=== PATIENT | female | born 1985 | race Caucasian/White ===

== ENCOUNTER 2024-12-20 00:08 | Emergency (ER) | payer MEDICARE, OTHER ==
[~2024-12-20] VITALS: Ht 154.9 cm; Wt 55.0 kg
[2024-12-20] MEDS ORDERED: Ondansetron HCl 2 MG / ML 2ML Vial IV PRN (01:05)
[2024-12-20 01:35] LABS: BASOPHILS ABSOLUTE AUTO 0.06 K/mm3 (0.00-0.23); BASOPHILS PERCENT AUTO 1 % (0-2); EOSINOPHILS ABSOLUTE AUTO 0.18 K/mm3 (0.00-0.68); EOSINOPHILS PERCENT AUTO 1 % (0-6); Hematocrit 34.9 % (33.0-51.0); Hemoglobin 11.6 g/dL (11.5-16.0); IMMATURE GRAN ABSOLUTE AUTO 0.03 K/mm3 (0.00-0.10); IMMATURE GRAN PERCENT AUTO 0 % (0-1); LYMPHOCYTES ABSOLUTE AUTO 1.10 K/mm3 (0.84-5.20); LYMPHOCYTES PERCENT AUTO 9 % (21-46); MONOCYTES ABSOLUTE AUTO 0.78 K/mm3 (0.16-1.47); MONOCYTES PERCENT AUTO 6 % (4-13); Mean Corpuscular HGB Conc 33.2 g/dL (31.5-36.5); Mean Corpuscular Volume 91 fL (80-100); NEUTROPHILS ABSOLUTE AUTO 10.74 K/mm3 (1.96-9.15); NEUTROPHILS PERCENT AUTO 83 % (41-73); NRBC ABSOLUTE 0.00 K/mm3 (0.00-0.02); NRBC Auto 0.0 /100 WBC (0.0-0.2); Platelet Count 346 K/mm3 (150-400); RDW Coefficient Variation 13.0 % (11.7-14.2); RDW Standard Deviation 43.6 fL (35.1-46.3)
[2024-12-20 01:54] LABS: Alanine Aminotransfer (ALT/SGP 12.0 U/L (12-78); Albumin, Blood 3.2 g/dL (3.4-5.0); Albumin/Globulin Ratio 0.8 (0.8-1.8); Anion Gap 12.0 mmol/L (3-11); Aspartate Aminotrans (AST/SGOT 14.0 U/L (12-37); Bilirubin, Total 0.4 mg/dL (0.1-1.0); Blood Urea Nitrogen 52.0 mg/dL (8-24); CO2, Blood 28.0 mmol/L (21-32); Calcium, Blood 9.2 mg/dL (8.5-10.1); Chloride, Blood 95.0 mmol/L (98-108); Creatinine, Blood 5.56 mg/dL (0.40-1.00); Globulin, Blood 4.2 g/dL (2.2-4.0); Glucose, Blood 136.0 mg/dL (70-99); Potassium, Blood 4.0 mmol/L (3.5-5.5); Sodium, Blood 131.0 mmol/L (136-145); Total Protein, Blood 7.4 g/dL (6.4-8.2)
[2024-12-26] MEDS ORDERED: ONDA4ODT MM (15:34)
[2024-12-28] MEDS ORDERED: LISI20 PO (01:16)
[2024-12-28] MEDS ORDERED: SPIRONOLACTONE1 EACH PO (01:17)
[2024-12-29] MEDS ORDERED: HUMALOG KW100 UNIT/1 SC (15:08)
[2024-12-29] MEDS ORDERED: MIDO5 PO (15:09)
== END 2024-12-20 02:47 | disposition home or self-care (01) ==
LOC: ER 00:08
PROVIDERS: Student in an Organized Health Care Education/Training Program
DX: R07.2 Precordial pain (principal); M54.50 Low back pain, unspecified; E11.22 Type 2 diabetes mellitus with diabetic chronic kidney disease; N18.6 End stage renal disease; Z99.2 Dependence on renal dialysis
CPT/HCPCS: 71046; 80053; 83690; 84484; 85025; 93005; 93010; 99284-25; A9270; J2405

== ENCOUNTER 2024-12-21 16:15 | Emergency (ER) | payer MEDICARE, OTHER ==
[~2024-12-21] VITALS: Ht 154.9 cm; Wt 55.0 kg
[2024-12-21] MEDS ORDERED: Etomidate 2MG / ML 10ML Vial IV ONE (16:55)
[2024-12-21] MEDS ORDERED: FentaNYL Citrate 50 MCG/ML 2 ML Injection IV ONE (16:55)
[2024-12-21 17:13] LABS: BASOPHILS ABSOLUTE AUTO 0.05 K/mm3 (0.00-0.23); BASOPHILS PERCENT AUTO 1 % (0-2); EOSINOPHILS ABSOLUTE AUTO 0.20 K/mm3 (0.00-0.68); EOSINOPHILS PERCENT AUTO 3 % (0-6); Hematocrit 40.7 % (33.0-51.0); Hemoglobin 13.8 g/dL (11.5-16.0); IMMATURE GRAN ABSOLUTE AUTO 0.03 K/mm3 (0.00-0.10); IMMATURE GRAN PERCENT AUTO 0 % (0-1); LYMPHOCYTES ABSOLUTE AUTO 1.52 K/mm3 (0.84-5.20); LYMPHOCYTES PERCENT AUTO 19 % (21-46); MONOCYTES ABSOLUTE AUTO 0.55 K/mm3 (0.16-1.47); MONOCYTES PERCENT AUTO 7 % (4-13); Mean Corpuscular HGB Conc 33.9 g/dL (31.5-36.5); Mean Corpuscular Volume 90 fL (80-100); NEUTROPHILS ABSOLUTE AUTO 5.57 K/mm3 (1.96-9.15); NEUTROPHILS PERCENT AUTO 70 % (41-73); NRBC ABSOLUTE 0.00 K/mm3 (0.00-0.02); NRBC Auto 0.0 /100 WBC (0.0-0.2); RDW Coefficient Variation 13.0 % (11.7-14.2); RDW Standard Deviation 43.2 fL (35.1-46.3)
[2024-12-21 17:26] LABS: Alanine Aminotransfer (ALT/SGP 11.0 U/L (12-78); Albumin, Blood 3.8 g/dL (3.4-5.0); Albumin/Globulin Ratio 0.9 (0.8-1.8); Anion Gap 14.0 mmol/L (3-11); Aspartate Aminotrans (AST/SGOT 11.0 U/L (12-37); Bilirubin, Total 0.6 mg/dL (0.1-1.0); Blood Urea Nitrogen 50.0 mg/dL (8-24); CO2, Blood 28.0 mmol/L (21-32); Calcium, Blood 9.8 mg/dL (8.5-10.1); Chloride, Blood 89.0 mmol/L (98-108); Creatinine, Blood 5.99 mg/dL (0.40-1.00); Globulin, Blood 4.3 g/dL (2.2-4.0); Glucose, Blood 186.0 mg/dL (70-99); Potassium, Blood 3.9 mmol/L (3.5-5.5); Sodium, Blood 127.0 mmol/L (136-145); Total Protein, Blood 8.1 g/dL (6.4-8.2)
[2024-12-21 17:30] LABS: Platelet Count 404 K/mm3 (150-400)
[2024-12-21] MEDS ORDERED: NS 500 ML IV SCH (17:35)
== END 2024-12-21 18:58 | disposition home or self-care (01) ==
LOC: ER 16:15
PROVIDERS: Student in an Organized Health Care Education/Training Program
DX: I48.91 Unspecified atrial fibrillation (principal); E11.22 Type 2 diabetes mellitus with diabetic chronic kidney disease; N18.6 End stage renal disease; Z99.2 Dependence on renal dialysis
CPT/HCPCS: 80053; 84484; 85025; J3010; J7030

== ENCOUNTER 2024-12-26 01:06 | Emergency (ER) | payer MEDICARE, OTHER ==
[~2024-12-26] VITALS: Ht 154.9 cm; Wt 59.0 kg
[2024-12-26 02:08] LABS: BASOPHILS ABSOLUTE AUTO 0.06 K/mm3 (0.00-0.23); BASOPHILS PERCENT AUTO 1 % (0-2); EOSINOPHILS ABSOLUTE AUTO 0.22 K/mm3 (0.00-0.68); EOSINOPHILS PERCENT AUTO 2 % (0-6); Hematocrit 32.5 % (33.0-51.0); Hemoglobin 10.8 g/dL (11.5-16.0); IMMATURE GRAN ABSOLUTE AUTO 0.04 K/mm3 (0.00-0.10); IMMATURE GRAN PERCENT AUTO 0 % (0-1); LYMPHOCYTES ABSOLUTE AUTO 1.20 K/mm3 (0.84-5.20); LYMPHOCYTES PERCENT AUTO 9 % (21-46); MONOCYTES ABSOLUTE AUTO 1.03 K/mm3 (0.16-1.47); MONOCYTES PERCENT AUTO 8 % (4-13); Mean Corpuscular HGB Conc 33.2 g/dL (31.5-36.5); Mean Corpuscular Volume 93 fL (80-100); NEUTROPHILS ABSOLUTE AUTO 10.52 K/mm3 (1.96-9.15); NEUTROPHILS PERCENT AUTO 80 % (41-73); NRBC ABSOLUTE 0.00 K/mm3 (0.00-0.02); NRBC Auto 0.0 /100 WBC (0.0-0.2); Platelet Count 453 K/mm3 (150-400); RDW Coefficient Variation 13.1 % (11.7-14.2); RDW Standard Deviation 44.5 fL (35.1-46.3)
[2024-12-26 02:12] LABS: Alanine Aminotransfer (ALT/SGP 12.0 U/L (12-78); Albumin, Blood 3.1 g/dL (3.4-5.0); Albumin/Globulin Ratio 0.8 (0.8-1.8); Anion Gap 12.0 mmol/L (3-11); Aspartate Aminotrans (AST/SGOT 8.0 U/L (12-37); Bilirubin, Total 0.2 mg/dL (0.1-1.0); Blood Urea Nitrogen 59.0 mg/dL (8-24); CO2, Blood 26.0 mmol/L (21-32); Calcium, Blood 9.6 mg/dL (8.5-10.1); Chloride, Blood 99.0 mmol/L (98-108); Creatinine, Blood 4.67 mg/dL (0.40-1.00); Globulin, Blood 4.1 g/dL (2.2-4.0); Glucose, Blood 113.0 mg/dL (70-99); Potassium, Blood 3.5 mmol/L (3.5-5.5); Sodium, Blood 133.0 mmol/L (136-145); Total Protein, Blood 7.2 g/dL (6.4-8.2)
[2024-12-26] MEDS ORDERED: Miralax17 GM PO (02:37)
[2024-12-26] MEDS ORDERED: Peg/Electrolytes 4,000 ML BTL PO ONE (02:40)
[2024-12-26] MEDS ORDERED: ONDA4ODT MM ×3 (15:34→15:36)
[2024-12-26] MEDS ORDERED: TRAM50 PO ×3 (15:34→15:36)
[2024-12-28] MEDS ORDERED: LISI20 PO (01:16)
[2024-12-28] MEDS ORDERED: SPIRONOLACTONE1 EACH PO (01:17)
[2024-12-29] MEDS ORDERED: HUMALOG KW100 UNIT/1 SC (15:08)
[2024-12-29] MEDS ORDERED: MIDO5 PO (15:09)
== END 2024-12-26 02:47 | disposition home or self-care (01) ==
LOC: ER 01:06
PROVIDERS: Emergency Medicine
DX: K59.00 Constipation, unspecified (principal); E11.22 Type 2 diabetes mellitus with diabetic chronic kidney disease; N18.9 Chronic kidney disease, unspecified; Z88.8 Allergy status to other drugs, medicaments and biological substances
CPT/HCPCS: 71250; 74176; 80053; 83690; 84484; 85025; 93005; 93010; 99284-25; A9270

== ENCOUNTER 2024-12-26 08:44 | Emergency (ER) | payer MEDICARE, OTHER ==
[~2024-12-26] VITALS: Ht 154.9 cm; Wt 59.0 kg
[~2024-12-26 08:44] MED LIST: Miralax17 GM PO
[2024-12-26] MEDS ORDERED: Colchicine 0.6 MG TAB PO ONE (13:15)
[2024-12-26 14:02] LABS: Source, Urine Clean Catch
[2024-12-26 14:11] LABS: Bilirubin, Urine Neg (Neg); Glucose Qualitative, Urine 2+ (Neg); Ketones, Urine Neg (Neg); Leukocyte Esterase, Urine Neg (Neg); Protein, Urine 3+ (Neg); Specific Gravity, Urine 1.010 (1.003-1.022); Urobilinogen, Urine NORM (Normal)
[2024-12-26 14:21] LABS: Color, Urine Pale Yellow (P-Yellow)
[2024-12-26 14:25] LABS: Red Blood Cells, Urine 0-2 /hpf (0-2)
[2024-12-26] MEDS ORDERED: TRAM50 PO ×2 (15:34→15:36)
[2024-12-26] MEDS ORDERED: ONDA4ODT MM ×2 (15:34→15:36)
[2024-12-28] MEDS ORDERED: LISI20 PO (01:16)
[2024-12-28] MEDS ORDERED: SPIRONOLACTONE1 EACH PO (01:17)
[2024-12-29] MEDS ORDERED: HUMALOG KW100 UNIT/1 SC (15:08)
[2024-12-29] MEDS ORDERED: MIDO5 PO (15:09)
== END 2024-12-26 15:45 | disposition home or self-care (01) ==
LOC: ER 08:44
PROVIDERS: Student in an Organized Health Care Education/Training Program
DX: N18.6 End stage renal disease (principal); I32 Pericarditis in diseases classified elsewhere; Z99.2 Dependence on renal dialysis; E11.22 Type 2 diabetes mellitus with diabetic chronic kidney disease; Z79.899 Other long term (current) drug therapy; Z88.8 Allergy status to other drugs, medicaments and biological substances; K59.00 Constipation, unspecified; N18.9 Chronic kidney disease, unspecified
CPT/HCPCS: 71250; 74176; 76770; 80053; 81001; 83690; 84484; 85025; 86140; 93005; 93010; 99284-25; 99285-25; A9270

== ENCOUNTER 2024-12-27 19:10 | Inpatient (IN) | payer MEDICARE, OTHER ==
[~2024-12-27] VITALS: Ht 154.9 cm; Wt 57.4 kg
[~2024-12-27 19:10] MED LIST changes: +Heparin Sodium,Porcine 5,000 UNIT/0.5 ML SDV SC SCH; +ONDA4ODT MM; +TRAM50 PO
[2024-12-27 20:34] LABS: BASOPHILS ABSOLUTE AUTO 0.05 K/mm3 (0.00-0.23); BASOPHILS PERCENT AUTO 1 % (0-2); EOSINOPHILS ABSOLUTE AUTO 0.21 K/mm3 (0.00-0.68); EOSINOPHILS PERCENT AUTO 3 % (0-6); Hematocrit 31.0 % (33.0-51.0); Hemoglobin 10.4 g/dL (11.5-16.0); IMMATURE GRAN ABSOLUTE AUTO 0.02 K/mm3 (0.00-0.10); IMMATURE GRAN PERCENT AUTO 0 % (0-1); LYMPHOCYTES ABSOLUTE AUTO 1.08 K/mm3 (0.84-5.20); LYMPHOCYTES PERCENT AUTO 15 % (21-46); MONOCYTES ABSOLUTE AUTO 0.59 K/mm3 (0.16-1.47); MONOCYTES PERCENT AUTO 8 % (4-13); Mean Corpuscular HGB Conc 33.5 g/dL (31.5-36.5); Mean Corpuscular Volume 91 fL (80-100); NEUTROPHILS ABSOLUTE AUTO 5.06 K/mm3 (1.96-9.15); NEUTROPHILS PERCENT AUTO 72 % (41-73); NRBC ABSOLUTE 0.00 K/mm3 (0.00-0.02); NRBC Auto 0.0 /100 WBC (0.0-0.2); RDW Coefficient Variation 13.2 % (11.7-14.2); RDW Standard Deviation 43.8 fL (35.1-46.3)
[2024-12-27 20:38] LABS: Platelet Count 392 K/mm3 (150-400)
[2024-12-27 20:41] LABS: Alanine Aminotransfer (ALT/SGP 12.0 U/L (12-78); Albumin, Blood 3.3 g/dL (3.4-5.0); Albumin/Globulin Ratio 0.8 (0.8-1.8); Anion Gap 15.0 mmol/L (3-11); Aspartate Aminotrans (AST/SGOT 12.0 U/L (12-37); Bilirubin, Total 0.2 mg/dL (0.1-1.0); Blood Urea Nitrogen 62.0 mg/dL (8-24); CO2, Blood 26.0 mmol/L (21-32); Calcium, Blood 9.4 mg/dL (8.5-10.1); Chloride, Blood 93.0 mmol/L (98-108); Creatinine, Blood 5.97 mg/dL (0.40-1.00); Globulin, Blood 4.2 g/dL (2.2-4.0); Glucose, Blood 189.0 mg/dL (70-99); Potassium, Blood 3.8 mmol/L (3.5-5.5); Sodium, Blood 130.0 mmol/L (136-145); Total Protein, Blood 7.5 g/dL (6.4-8.2)
[2024-12-27] MEDS ORDERED: Ondansetron HCl 2 MG / ML 2ML Vial IV PRN (23:40)
[2024-12-27] MEDS ORDERED: FLU VACC TS2025-26(6MOS UP)/PF 45 MCG/0.5 ML SYRINGE IM SCH (23:45)
[2024-12-28] VITALS (20 sets, daily range): BP systolic 101–179; BP diastolic 59–80
[2024-12-28] MEDS ORDERED: Heparin Sodium,Porcine 5,000 UNIT/0.5 ML SDV SC SCH (00:33)
[2024-12-28] MEDS ORDERED: LISI20 PO ×2 (01:16)
[2024-12-28] MEDS ORDERED: SPIRONOLACTONE1 EACH PO ×2 (01:17)
[2024-12-28 05:13] LABS: BASOPHILS ABSOLUTE AUTO 0.05 K/mm3 (0.00-0.23); BASOPHILS PERCENT AUTO 1 % (0-2); EOSINOPHILS ABSOLUTE AUTO 0.23 K/mm3 (0.00-0.68); EOSINOPHILS PERCENT AUTO 3 % (0-6); Hematocrit 29.3 % (33.0-51.0); Hemoglobin 9.6 g/dL (11.5-16.0); IMMATURE GRAN ABSOLUTE AUTO 0.02 K/mm3 (0.00-0.10); IMMATURE GRAN PERCENT AUTO 0 % (0-1); LYMPHOCYTES ABSOLUTE AUTO 1.29 K/mm3 (0.84-5.20); LYMPHOCYTES PERCENT AUTO 17 % (21-46); MONOCYTES ABSOLUTE AUTO 0.91 K/mm3 (0.16-1.47); MONOCYTES PERCENT AUTO 12 % (4-13); Mean Corpuscular HGB Conc 32.8 g/dL (31.5-36.5); Mean Corpuscular Volume 92 fL (80-100); NEUTROPHILS ABSOLUTE AUTO 5.06 K/mm3 (1.96-9.15); NEUTROPHILS PERCENT AUTO 67 % (41-73); NRBC ABSOLUTE 0.00 K/mm3 (0.00-0.02); NRBC Auto 0.0 /100 WBC (0.0-0.2); Platelet Count 398 K/mm3 (150-400); RDW Coefficient Variation 13.0 % (11.7-14.2); RDW Standard Deviation 44.1 fL (35.1-46.3)
[2024-12-28] MEDS ORDERED: NS 1,000 ML IV ONE (05:35)
[2024-12-28 05:40] LABS: Alanine Aminotransfer (ALT/SGP 11.0 U/L (12-78); Albumin, Blood 2.6 g/dL (3.4-5.0); Albumin/Globulin Ratio 0.7 (0.8-1.8); Anion Gap 14.0 mmol/L (3-11); Aspartate Aminotrans (AST/SGOT 8.0 U/L (12-37); Bilirubin, Total 0.3 mg/dL (0.1-1.0); Blood Urea Nitrogen 65.0 mg/dL (8-24); CO2, Blood 25.0 mmol/L (21-32); Calcium, Blood 8.8 mg/dL (8.5-10.1); Chloride, Blood 97.0 mmol/L (98-108); Creatinine, Blood 6.53 mg/dL (0.40-1.00); Globulin, Blood 3.8 g/dL (2.2-4.0); Glucose, Blood 127.0 mg/dL (70-99); Potassium, Blood 3.7 mmol/L (3.5-5.5); Sodium, Blood 132.0 mmol/L (136-145); Total Protein, Blood 6.4 g/dL (6.4-8.2)
[2024-12-28] MEDS ORDERED: Darbepoetin (Pharmacy Consult) SC SCH (07:10)
[2024-12-28] MEDS ORDERED: NS 1,000 ML IV SCH (07:30)
[2024-12-28] MEDS ORDERED: Insulin Human Lispro 100 Units/ML 3ML Syringe SC SCH ×2 (07:30→16:30)
--- NOTE | 2024-12-28 07:35 | NUR ---
NEPHROLOGY REQUEST NOTE: THIS RN WERE NOTIFIED BY KORY ANGEL. PER JEANNE HODGES ROUND ON PATIENT AND RECEIVED A VO TO NOTIFY THIS RN TO HAVE PATIENT DIALYZE TODAY. THIS RN NOTIFIED [facility] REGARDING DR. HODGES'S REQUEST. JAMIE GAVE THIS RN EVELIO RN'S NUMBER AT [phone] TO CALL AND SCHEDULED FOR DIALYSIS. THIS RN SPOKE TO EVELIO VIA PHONE, PER EVELIO SHE WILL DIALYZE PATIENT AT 0830 IN SECOND [facility]-DIALYSIS DEPT.
[2024-12-28] MEDS ORDERED: Calcium Acetate 667 MG Gel Cap PO SCH (08:30)
[2024-12-28] MEDS ORDERED: Polyethylene Glycol 3350 17 gm PO SCH (09:00)
[2024-12-28] MEDS ORDERED: Colchicine 0.6 MG TAB PO SCH (09:00)
--- NOTE | 2024-12-28 09:22 | NUR ---
OUT OF ROOM NOTE: PATIENT LEFT THE ROOM AT 0826 TRANSPORTED VIA BED BY FIELD SERVICE TECH'Niko THOMAS TO DIALYSIS.
[2024-12-28 09:28] LABS: Ferritin, Serum 1341.0 ng/mL (8-252); Total Iron Binding Capacity 139.0 ug/dL (250-450)
[2024-12-28] MEDS ORDERED: Darbepoetin Alfa in Polysorbat 25 MCG/0.42 ML Syringe SC SCH (17:00)
--- NOTE | 2024-12-28 17:09 | NUR ---
SHIFT SUMMARY: PATIENT WAS DIALYZED TODAY c 3500 NET FLUID WAS REMOVED. PATIENT REPORTS MILD MID STERNUM PAIN c DEEP BREATHING, STATED "IT'S NOT NEW I HAVE BEEN HAVING THIS FOR THREE WEEKS, SINCE MY DX'S OF URIMIA PERICARDITIS." OFFERED PAIN MEDICATION, BUT HAS BEEN DECLINING T/O THE DAY. ECHO WAS ORDERED THIS MORNING, BUT HAS NOT DONE. PATIENT AMBULATED AROUND THE UNIT X3 c SPOUSE, TOLERATING WELL. PATIENT DENIES SOB, DIZZINESS, N/V. PATIENT ON TELE, SR HR IN 70'S-90'S BPM. VITALS SIGNS REVIEWED. PATIENT PROTIEN-24 HR URINE COLLECTION STARTED AT 1220 TODAY. PATIENT A/OX4, CALM, PLEASANT, CALLS APPROPRIATELY AND MAKE NEEDS KNOWN. PATIENT HAS HAD NO COMPLAINTS OR DENIES NEW CONCERN THIS SHIFT. CALL LIGHT IN REACH.
[2024-12-29] VITALS (17 sets, daily range): BP systolic 83–144; BP diastolic 46–81
[2024-12-29 05:39] LABS: Hematocrit 29.2 % (33.0-51.0); Hemoglobin 9.7 g/dL (11.5-16.0)
[2024-12-29 06:01] LABS: Magnesium, Blood 2.5 mg/dL (1.6-2.4)
[2024-12-29 06:02] LABS: Albumin, Blood 2.7 g/dL (3.4-5.0); Anion Gap 11 mmol/L (3-11); Blood Urea Nitrogen 50 mg/dL (8-24); CO2, Blood 27 mmol/L (21-32); Calcium, Blood 9.1 mg/dL (8.5-10.1); Chloride, Blood 97 mmol/L (98-108); Creatinine, Blood 5.36 mg/dL (0.40-1.00); Glucose, Blood 165 mg/dL (70-99); Phosphorus, Blood 5.6 mg/dL (2.5-4.9); Potassium, Blood 3.9 mmol/L (3.5-5.5); Sodium, Blood 131 mmol/L (136-145)
[2024-12-29 13:57] LABS: Protein, Urine Quantitative 153.0 mg/dL (0.0-11.9)
[2024-12-29 14:59] LABS: HEPATITIS B SURFACE ANTIBODY >1000.00 IU/L
[2024-12-29] MEDS ORDERED: HUMALOG KW100 UNIT/1 SC ×2 (15:08)
[2024-12-29] MEDS ORDERED: MIDO5 PO ×2 (15:09)
[2024-12-29 15:32] LABS: HBV CORE ANTIBODIES,TOTAL Negative (Negative)
[2024-12-30 21:44] LABS: GBM, IGG MULTIPLEX BEAD ASSAY 0 AU/mL (0-19); MYELOPEROXIDASE (MPO) AB,IGG 0 AU/mL (0-19); SERINE PROTEINASE 3 PR3 AB,IGG 1 AU/mL (0-19)
[2025-01-01 21:19] LABS: ANTINUCLEAR AB (ANA),HEP-2,IGG <1:80 (<1:80)
== END 2024-12-29 16:53 | disposition home or self-care (01) | DRG 682 ==
LOC: ER 19:10 → MEDS 19:11 → ENPENDDIS 12-29 14:17 → MEDS 12-29 16:53
PROVIDERS: Internal Medicine Nephrology; Student in an Organized Health Care Education/Training Program; ADMIT Internal Medicine
PROC: 5A1D70Z Performance of Urinary Filtration, Intermittent, Less than 6 Hours Per Day (ICD-10-PCS; principal; 2024-12-28)
DX: I12.0 Hypertensive chronic kidney disease with stage 5 chronic kidney disease or end stage renal disease (principal); N18.6 End stage renal disease; I32 Pericarditis in diseases classified elsewhere; E87.1 Hypo-osmolality and hyponatremia; E11.22 Type 2 diabetes mellitus with diabetic chronic kidney disease; D63.1 Anemia in chronic kidney disease; I48.91 Unspecified atrial fibrillation; E83.39 Other disorders of phosphorus metabolism; E88.09 Other disorders of plasma-protein metabolism, not elsewhere classified; Z99.2 Dependence on renal dialysis; Z88.8 Allergy status to other drugs, medicaments and biological substances
CPT/HCPCS: 36415; 71046; 80053; 80069; 82533; 82607; 82728; 82746; 82947; 83036; 83516; 83540; 83550; 83735; 84156; 84443; 84484; 85014; 85018; 85025; 86039; 86704; 87340; 87517; 93005; 93010; 93246; 93306; 96372; 99285-25; A9270; G0378; J1644; J7030

== ENCOUNTER 2024-12-31 21:07 | Emergency (ER) | payer MEDICARE, OTHER ==
[~2024-12-31] VITALS: Ht 154.9 cm; Wt 54.5 kg
[~2024-12-31 21:07] MED LIST changes: +HUMALOG KW100 UNIT/1 SC; -Heparin Sodium,Porcine 5,000 UNIT/0.5 ML SDV SC SCH; +LISI20 PO; +MIDO5 PO; +SPIRONOLACTONE1 EACH PO
== END 2024-12-31 23:08 | disposition left against medical advice (07) ==
LOC: ER 21:07
DX: Z53.21 Procedure and treatment not carried out due to patient leaving prior to being seen by health care provider (principal)